=== PATIENT | male | born 1945 | race Caucasian/White ===

== ENCOUNTER → 2016-07-14 | Outpatient (CLI) | payer MEDICARE ==
[~2016-07-14] MED LIST: CARAFATE1 G1 PO; DELTASONE20 M1 PO; GLIPIZIDE XL5 M1 PO; GLUCOPHAGE500 MG/TAB PO; PRILOSEC 20MG20 MG PO; SYNTHROID0.075 MG/T PO; TENORMIN 2525 MG/TAB PO; TERAZOSIN HCL PO; ZITHROMAX 250M250 MG PO
== END ==
LOC: LAB 07:57
DX: E11.9 Type 2 diabetes mellitus without complications (principal); I10 Essential (primary) hypertension; E03.4 Atrophy of thyroid (acquired); G47.33 Obstructive sleep apnea (adult) (pediatric)

== ENCOUNTER → 2016-11-04 | Outpatient (CLI) | payer MEDICARE ==
[2015-12-04 01:51] VITALS: BP 145/82
== END ==
LOC: LAB 07:40
DX: E11.9 Type 2 diabetes mellitus without complications (principal); I10 Essential (primary) hypertension; E03.4 Atrophy of thyroid (acquired); G47.33 Obstructive sleep apnea (adult) (pediatric)

== ENCOUNTER → 2016-11-17 | Outpatient (CLI) | payer MEDICARE ==
[2015-12-04 01:51] VITALS: BP 145/82
== END ==
LOC: LAB 09:45
DX: I10 Essential (primary) hypertension (principal)

== ENCOUNTER → 2017-04-10 | Outpatient (CLI) | payer MEDICARE ==
[2015-12-04 01:51] VITALS: BP 145/82
== END ==
LOC: RAD 16:03
DX: R91.8 Other nonspecific abnormal finding of lung field (principal); R06.2 Wheezing

== ENCOUNTER → 2017-04-12 | Outpatient (CLI) | payer MEDICARE ==
[2015-12-04 01:51] VITALS: BP 145/82
== END ==
LOC: RAD 10:21
DX: J18.9 Pneumonia, unspecified organism (principal)

== ENCOUNTER → 2017-05-20 | Outpatient (CLI) | payer MEDICARE ==
[2015-12-04 01:51] VITALS: BP 145/82
[2017-05-20 09:04] LABS: BASO # 0.1 (0.02-0.10); EOS # 0.2 (0.04-0.40); EOS % 1.7 % (0.0-4.0); HEMATOCRIT 37.3 % (42.0-52.0); HEMOGLOBIN 11.9 g/dL (13.5-18.0); LYMPH# 1.9 (1.50-4.00); MEAN CELL VOLUME 90 fl (78-100); MEAN CORPUSCULAR HEMOGLOBIN 29 pg (27-31); MEAN CORPUSCULAR HGB CONC 32 g/dL (33-37); MEAN PLATELET VOLUME 10.7 fl (7.4-10.4); MONO # 0.7 (0.20-0.80); NEU # 6.5 (1.40-6.50); PLATELET COUNT 319 K/mm3 (130-400); RED BLOOD COUNT 4.14 M/mm3 (4.20-5.60); RED CELL DISTRIBUTION WIDTH 13.1 % (11.5-14.5); WHITE BLOOD COUNT 9.4 K/mm3 (4.8-10.8)
[2017-05-20 09:40] LABS: BUN/CREATININE RATIO 19.1 (6.0-26.0); POTASSIUM 5.3 mmol/L (3.6-5.0); TOTAL BILIRUBIN 0.5 mg/dL (0.2-1.3); TOTAL PROTEIN 6.9 g/dL (6.3-8.2)
[2017-05-20 10:12] LABS: PH-URINE 5.5 (5.0 - 8.0); URINE APPEARANCE CLEAR; URINE BILIRUBIN NEGATIVE (NEGATIVE); URINE BLOOD NEGATIVE (NEGATIVE); URINE COLOR YELLOW; URINE GLUCOSE NEGATIVE (NEGATIVE); URINE KETONE NEGATIVE (NEGATIVE); URINE LEUKOCYTE ESTERASE NEGATIVE (NEGATIVE); URINE NITRATE NEGATIVE (NEGATIVE); URINE PROTEIN(semi-quant) TRACE mg/dL (NEGATIVE); URINE UROBILINOGEN NORMAL (NORMAL)
[2017-05-20 10:13] LABS: URINE MUCUS PRESENT (NOT PRESENT)
[2017-05-20 10:24] LABS: ERYTHROCYTE SEDIMENTATION RATE 25 mm/hr (0-20)
[2017-05-20 17:57] LABS: TESTOSTERONE 308 ng/dL (221-716)
== END ==
LOC: LAB 08:00
PROVIDERS: Internal Medicine
DX: E11.9 Type 2 diabetes mellitus without complications (principal); Z12.5 Encounter for screening for malignant neoplasm of prostate; E78.2 Mixed hyperlipidemia; N52.9 Male erectile dysfunction, unspecified; Z12.11 Encounter for screening for malignant neoplasm of colon; I10 Essential (primary) hypertension; R20.2 Paresthesia of skin; E03.4 Atrophy of thyroid (acquired)

== ENCOUNTER 2017-07-17 14:50 | Emergency (ER) | payer MEDICARE ==
[~2017-07-17] VITALS: Ht 177.8 cm; Wt 108.2 kg
[2017-07-17] MEDS ORDERED: ACTOS30 MG PO (14:58)
[2017-07-17 15:18] LABS: EOS # 0.2 (0.04-0.40); EOS % 2.2 % (0.0-4.0); HEMATOCRIT 34.5 % (42.0-52.0); HEMOGLOBIN 11.1 g/dL (13.5-18.0); LYMPH# 1.8 (1.50-4.00); MEAN CELL VOLUME 91 fl (78-100); MEAN CORPUSCULAR HEMOGLOBIN 29 pg (27-31); MEAN CORPUSCULAR HGB CONC 32 g/dL (33-37); MEAN PLATELET VOLUME 10.1 fl (7.4-10.4); MONO # 0.8 (0.20-0.80); NEU # 5.7 (1.40-6.50); PLATELET COUNT 269 K/mm3 (130-400); RED BLOOD COUNT 3.78 M/mm3 (4.20-5.60); RED CELL DISTRIBUTION WIDTH 13.3 % (11.5-14.5); WHITE BLOOD COUNT 8.5 K/mm3 (4.8-10.8)
[2017-07-17 15:39] LABS: BUN/CREATININE RATIO 16.8 (6.0-26.0); CALCIUM 9.5 mg/dL (8.4-10.2); POTASSIUM 4.1 mmol/L (3.6-5.0); TOTAL BILIRUBIN 0.2 mg/dL (0.2-1.3); TOTAL PROTEIN 7.1 g/dL (6.3-8.2)
[2017-07-17 15:50] LABS: CKMB ISOENZYME 2.1 ng/mL (0.6-3.5)
[2017-07-17 15:52] LABS: TROPONIN-I < 0.03 ng/mL (0.00-0.06)
[2017-07-17] MEDS ORDERED: IPRATROPIUM BROM3 M1 IH (16:17)
[2017-07-17] MEDS ORDERED: PREDNISONE20 M1 PO (16:17)
[2017-07-17] MEDS ORDERED: RT SPIRIVA INH18 MCG IH (16:36)
[2017-07-17 16:57] VITALS: BP 149/70
== END 2017-07-17 16:53 | disposition home or self-care (01) ==
LOC: ED 14:50
PROVIDERS: Nurse Practitioner Primary Care
DX: J44.1 Chronic obstructive pulmonary disease with (acute) exacerbation (principal); I11.0 Hypertensive heart disease with heart failure; I50.9 Heart failure, unspecified; E11.9 Type 2 diabetes mellitus without complications; Z88.5 Allergy status to narcotic agent; Z88.0 Allergy status to penicillin; Z79.84 Long term (current) use of oral hypoglycemic drugs

== ENCOUNTER → 2017-09-18 | Outpatient (CLI) | payer MEDICARE ==
[~2017-09-18] MED LIST changes: +ACTOS30 MG PO; +IPRATROPIUM BROM3 M1 IH; +PREDNISONE20 M1 PO; +RT SPIRIVA INH18 MCG IH
== END ==
LOC: LAB 09:19
DX: R06.02 Shortness of breath (principal)

== ENCOUNTER → 2017-12-05 | Outpatient (CLI) | payer MEDICARE ==
[2017-12-06 04:36] LABS: C-REACTIVE PROTEIN XXX
[2017-12-07 01:00] LABS: ANA SCREEN with REFLEX Negative (Negative)
== END ==
LOC: LAB 08:58
PROVIDERS: Internal Medicine Pulmonary Disease
DX: J44.9 Chronic obstructive pulmonary disease, unspecified (principal)

== ENCOUNTER → 2018-03-20 | Outpatient (CLI) | payer MEDICARE ==
[2018-03-20 07:52] LABS: CALCIUM 9.7 mg/dL (8.4-10.2); POTASSIUM 4.8 mmol/L (3.6-5.0); TOTAL BILIRUBIN 0.6 mg/dL (0.2-1.3); TOTAL PROTEIN 6.8 g/dL (6.3-8.2)
== END ==
LOC: LAB 07:06
PROVIDERS: Internal Medicine
DX: E11.9 Type 2 diabetes mellitus without complications (principal); I10 Essential (primary) hypertension; E78.2 Mixed hyperlipidemia

== ENCOUNTER → 2018-04-03 | Outpatient (CLI) | payer MEDICARE ==
[2018-04-03 10:04] LABS: EOS # 0.2 (0.04-0.40); EOS % 2.5 % (0.0-4.0); HEMATOCRIT 34.3 % (42.0-52.0); LYMPH# 1.2 (1.50-4.00); MEAN CELL VOLUME 93 fl (78-100); MEAN CORPUSCULAR HEMOGLOBIN 30 pg (27-31); MEAN CORPUSCULAR HGB CONC 32 g/dL (33-37); MEAN PLATELET VOLUME 10.7 fl (7.4-10.4); MONO # 0.8 (0.20-0.80); NEU # 5.7 (1.40-6.50); PLATELET COUNT 256 K/mm3 (130-400); RED BLOOD COUNT 3.68 M/mm3 (4.20-5.60); RED CELL DISTRIBUTION WIDTH 13.3 % (11.5-14.5); WHITE BLOOD COUNT 7.9 K/mm3 (4.8-10.8)
[2018-04-03 23:52] LABS: FOLLICLE STIMULATING HORMONE 40.7 mIU/mL (1.0-12.0); LUTENIZING HORMONE 18.9 mIU/mL (0.6-12.1); PROLACTIN 13.6 ng/mL (3.5-19.4); TESTOSTERONE 264 ng/dL (221-716)
== END ==
LOC: LAB 09:08
PROVIDERS: Internal Medicine
DX: J84.89 Other specified interstitial pulmonary diseases (principal); E11.9 Type 2 diabetes mellitus without complications; I10 Essential (primary) hypertension; E29.1 Testicular hypofunction

== ENCOUNTER 2018-05-07 02:59 | Emergency (ER) | payer MEDICARE ==
[~2018-05-07] VITALS: Ht 177.8 cm; Wt 106.8 kg
[~2018-05-07 02:59] MED LIST changes: -GLIPIZIDE XL5 M1 PO; +GLUCOTROL XL10 M1 PO
[2018-05-07] MEDS ORDERED: IPRATROPIUM BROM3 M1 IH (03:14)
[2018-05-07] MEDS ORDERED: DULERA1 ARO IH (03:15)
[2018-05-07] MEDS ORDERED: COZAAR 50MG50 MG/TAB PO (03:16)
[2018-05-07] MEDS ORDERED: ATORVASTATIN CA40 MG PO (03:17)
[2018-05-07] MEDS ORDERED: PRILOSEC OTC20 MG PO (03:17)
[2018-05-07 03:46] LABS: EOS # 0.2 (0.04-0.40); EOS % 1.8 % (0.0-4.0); HEMATOCRIT 32.5 % (42.0-52.0); LYMPH# 1.4 (1.50-4.00); MEAN CELL VOLUME 88 fl (78-100); MEAN CORPUSCULAR HEMOGLOBIN 30 pg (27-31); MEAN CORPUSCULAR HGB CONC 34 g/dL (33-37); MEAN PLATELET VOLUME 9.7 fl (7.4-10.4); MONO # 1.1 (0.20-0.80); NEU # 7.5 (1.40-6.50); PLATELET COUNT 281 K/mm3 (130-400); RED BLOOD COUNT 3.68 M/mm3 (4.20-5.60); WHITE BLOOD COUNT 10.3 K/mm3 (4.8-10.8)
[2018-05-07] MEDS ORDERED: PREDNISONE20 M1 PO (04:29)
[2018-05-07] MEDS ORDERED: NORCO 325 MG-51 TA1 PO (04:29)
[2018-05-07 04:40] VITALS: BP 136/72
== END 2018-05-07 04:40 | disposition home or self-care (01) ==
LOC: ED 02:59
PROVIDERS: Family Medicine
DX: M25.531 Pain in right wrist (principal); J44.9 Chronic obstructive pulmonary disease, unspecified; E11.9 Type 2 diabetes mellitus without complications; I10 Essential (primary) hypertension; E78.5 Hyperlipidemia, unspecified; Z79.899 Other long term (current) drug therapy; Z79.84 Long term (current) use of oral hypoglycemic drugs
CPT/HCPCS: J1885

== ENCOUNTER → 2018-06-12 | Outpatient (CLI) | payer MEDICARE ==
[~2018-06-12] MED LIST changes: +ATORVASTATIN CA40 MG PO; +COZAAR 50MG50 MG/TAB PO; +DULERA1 ARO IH; +NORCO 325 MG-51 TA1 PO; +PRILOSEC OTC20 MG PO
[2018-06-12 10:49] LABS: BASO # 0.1 (0.02-0.10); EOS # 0.2 (0.04-0.40); EOS % 2.3 % (0.0-4.0); HEMATOCRIT 33.6 % (42.0-52.0); HEMOGLOBIN 10.9 g/dL (13.5-18.0); LYMPH# 1.3 (1.50-4.00); MEAN CELL VOLUME 89 fl (78-100); MEAN CORPUSCULAR HEMOGLOBIN 29 pg (27-31); MEAN CORPUSCULAR HGB CONC 32 g/dL (33-37); MONO # 0.7 (0.20-0.80); NEU # 5.2 (1.40-6.50); PLATELET COUNT 314 K/mm3 (130-400); RED BLOOD COUNT 3.79 M/mm3 (4.20-5.60); RED CELL DISTRIBUTION WIDTH 12.2 % (11.5-14.5); WHITE BLOOD COUNT 7.4 K/mm3 (4.8-10.8)
[2018-06-12 11:01] LABS: ALBUMIN 4.3 g/dL (3.5-5.0); CALCIUM 8.3 mg/dL (8.4-10.2); POTASSIUM 4.7 mmol/L (3.6-5.0); TOTAL BILIRUBIN 0.9 mg/dL (0.2-1.3); TOTAL PROTEIN 7.2 g/dL (6.3-8.2)
[2018-06-12 11:13] LABS: PH-URINE 7.5 (5.0 - 8.0); URINE APPEARANCE CLEAR; URINE BILIRUBIN NEGATIVE (NEGATIVE); URINE BLOOD NEGATIVE (NEGATIVE); URINE COLOR YELLOW; URINE GLUCOSE NEGATIVE (NEGATIVE); URINE KETONE NEGATIVE (NEGATIVE); URINE LEUKOCYTE ESTERASE NEGATIVE (NEGATIVE); URINE NITRATE NEGATIVE (NEGATIVE); URINE PROTEIN(semi-quant) 1+ mg/dL (NEGATIVE); URINE UROBILINOGEN NORMAL (NORMAL)
== END ==
LOC: LAB 10:22
PROVIDERS: Internal Medicine
DX: R10.84 Generalized abdominal pain (principal); D64.9 Anemia, unspecified; I10 Essential (primary) hypertension; E11.9 Type 2 diabetes mellitus without complications; J84.112 Idiopathic pulmonary fibrosis
CPT/HCPCS: Q9967

== ENCOUNTER → 2018-07-31 | Day surgery (SDC) | payer MEDICARE | LOC: MSO 09:16 | DX: Z12.11 Encounter for screening for malignant neoplasm of colon (principal); D12.8 Benign neoplasm of rectum; K21.0 Gastro-esophageal reflux disease with esophagitis; K57.30 Diverticulosis of large intestine without perforation or abscess without bleeding; J44.9 Chronic obstructive pulmonary disease, unspecified; I10 Essential (primary) hypertension; G47.33 Obstructive sleep apnea (adult) (pediatric); E11.9 Type 2 diabetes mellitus without complications; E03.9 Hypothyroidism, unspecified; Z79.84 Long term (current) use of oral hypoglycemic drugs; Z88.0 Allergy status to penicillin; Z88.5 Allergy status to narcotic agent; Z88.8 Allergy status to other drugs, medicaments and biological substances; Z87.891 Personal history of nicotine dependence | CPT/HCPCS: 00813; J2704; J7030 ==

== ENCOUNTER → 2018-09-13 | Outpatient (CLI) | payer MEDICARE ==
[2018-09-13 09:40] LABS: ALBUMIN 4.1 g/dL (3.5-5.0); CALCIUM 9.4 mg/dL (8.4-10.2); POTASSIUM 4.3 mmol/L (3.6-5.0); TOTAL BILIRUBIN 0.5 mg/dL (0.2-1.3); TOTAL PROTEIN 6.7 g/dL (6.3-8.2)
== END ==
LOC: LAB 09:09
PROVIDERS: Internal Medicine
DX: J84.89 Other specified interstitial pulmonary diseases (principal); E78.2 Mixed hyperlipidemia; E11.9 Type 2 diabetes mellitus without complications; I10 Essential (primary) hypertension

== ENCOUNTER 2019-07-25 08:30 | Outpatient (RCR) | payer MEDICARE | END 2019-09-29 | disposition still patient (30) | LOC: PT | DX: M48.02 Spinal stenosis, cervical region (principal) ==

== ENCOUNTER → 2019-12-04 | Day surgery (SDC) | payer MEDICARE | LOC: MSO 07:02 | DX: E11.36 Type 2 diabetes mellitus with diabetic cataract (principal); H25.12 Age-related nuclear cataract, left eye; M19.90 Unspecified osteoarthritis, unspecified site; J44.9 Chronic obstructive pulmonary disease, unspecified; E03.9 Hypothyroidism, unspecified; I10 Essential (primary) hypertension; G47.33 Obstructive sleep apnea (adult) (pediatric); K21.9 Gastro-esophageal reflux disease without esophagitis; Z88.5 Allergy status to narcotic agent; Z88.0 Allergy status to penicillin; Z88.8 Allergy status to other drugs, medicaments and biological substances; Z79.82 Long term (current) use of aspirin; Z79.4 Long term (current) use of insulin; Z20.828 Contact with and (suspected) exposure to other viral communicable diseases | CPT/HCPCS: 00142; J0171; J2250; V2632 ==

== ENCOUNTER → 2020-01-08 | Day surgery (SDC) | payer MEDICARE | LOC: MSO 07:00 | DX: E11.36 Type 2 diabetes mellitus with diabetic cataract (principal); H25.11 Age-related nuclear cataract, right eye; J44.9 Chronic obstructive pulmonary disease, unspecified; E03.9 Hypothyroidism, unspecified; M19.90 Unspecified osteoarthritis, unspecified site; Z79.82 Long term (current) use of aspirin; Z79.84 Long term (current) use of oral hypoglycemic drugs; Z88.5 Allergy status to narcotic agent; Z88.0 Allergy status to penicillin; G47.33 Obstructive sleep apnea (adult) (pediatric) | CPT/HCPCS: 00142; J0171; J2250; V2632 ==

== ENCOUNTER 2021-01-07 09:26 | Emergency (ER) | payer MEDICARE ==
[~2021-01-07] VITALS: Wt 99.2 kg
[2021-01-07] MEDS ORDERED: INSULIN 70/3100 U/ML SQ (09:39)
[2021-01-07] MEDS ORDERED: ASPIRIN E.C. 8181 MG (09:39)
[2021-01-07] MEDS ORDERED: MELOXICAM15 MG PO (09:40)
[2021-01-07] MEDS ORDERED: TRELEGY ELLIPT1 EACH IH (09:41)
[2021-01-07 10:05] LABS: BASO # 0.06 (0.02-0.10); EOS # 0.02 (0.04-0.40); EOS % 0.1 % (0.0-4.0); HEMATOCRIT 37.5 % (42.0-52.0); HEMOGLOBIN 12.5 g/dL (13.5-18.0); LYMPH# 0.79 (1.50-4.00); MEAN CELL VOLUME 88 fl (78-100); MEAN CORPUSCULAR HEMOGLOBIN 29 pg (27-31); MEAN CORPUSCULAR HGB CONC 33 g/dL (33-37); MEAN PLATELET VOLUME 10.8 fl (7.4-10.4); MONO # 0.75 (0.20-0.80); NEU # 16.42 (1.40-6.50); PLATELET COUNT 295 K/mm3 (130-400); RED BLOOD COUNT 4.25 M/mm3 (4.20-5.60); WHITE BLOOD COUNT 18.1 K/mm3 (4.8-10.8)
[2021-01-07 10:21] LABS: ALBUMIN 4.3 g/dL (3.4-4.8)
[2021-01-07 10:22] LABS: SODIUM 130 mmol/L (136-145)
[2021-01-07 10:23] LABS: CALCIUM 10.8 mg/dL (8.3-10.5)
[2021-01-07 10:24] LABS: GLUCOSE 205 mg/dL (75-110); TOTAL PROTEIN 7.6 g/dL (6.2-8.1)
[2021-01-07 10:25] LABS: CARBON DIOXIDE 23 mmol/L (23-31)
[2021-01-07 10:26] LABS: TOTAL BILIRUBIN 0.9 mg/dL (0.2-1.2)
[2021-01-07 10:29] LABS: AST-SGOT 22 U/L (5-34)
[2021-01-07 10:30] LABS: ALT/SGPT 45 U/L (0-55)
[2021-01-07 10:38] LABS: TROPONIN-I < 0.03 ng/mL (<0.030)
[2021-01-07 11:48] LABS: URINE APPEARANCE CLEAR; URINE BILIRUBIN NEGATIVE (NEGATIVE); URINE BLOOD NEGATIVE (NEGATIVE); URINE COLOR YELLOW; URINE KETONE NEGATIVE (NEGATIVE); URINE LEUKOCYTE ESTERASE NEGATIVE (NEGATIVE); URINE NITRATE NEGATIVE (NEGATIVE); URINE PROTEIN(semi-quant) 2+ mg/dL (NEGATIVE); URINE UROBILINOGEN NORMAL (NORMAL)
[2021-01-07 14:58] VITALS: BP 143/93
== END 2021-01-07 14:10 | disposition short-term general hospital (02) ==
LOC: ED 09:26
PROVIDERS: Nurse Practitioner
DX: R42 Dizziness and giddiness (principal); R51.9 Headache, unspecified; D72.829 Elevated white blood cell count, unspecified; M54.2 Cervicalgia; R41.0 Disorientation, unspecified; Z20.822 Contact with and (suspected) exposure to COVID-19; Z88.6 Allergy status to analgesic agent
CPT/HCPCS: J2405; J7030

== ENCOUNTER 2021-12-01 17:28 | Emergency (ER) | payer MEDICARE ==
[~2021-12-01] VITALS: Ht 172.7 cm; Wt 99.2 kg
[~2021-12-01 17:28] MED LIST changes: +ASPIRIN E.C. 8181 MG; +INSULIN 70/3100 U/ML SQ; +MELOXICAM15 MG PO; +TRELEGY ELLIPT1 EACH IH
[2021-12-01 19:53] VITALS: BP 157/74
== END 2021-12-01 20:12 | disposition home or self-care (01) ==
LOC: ED 17:28
DX: T22.112A Burn of first degree of left forearm, initial encounter (principal); T31.0 Burns involving less than 10% of body surface; Z23 Encounter for immunization; Z88.6 Allergy status to analgesic agent; X12.XXXA Contact with other hot fluids, initial encounter
CPT/HCPCS: 90715

== ENCOUNTER 2023-03-07 08:38 | Emergency (ER) | payer MEDICARE ==
[~2023-03-07] VITALS: Ht 172.7 cm; Wt 106.4 kg
[2023-03-07] MEDS ORDERED: FLOMAX0.4 MG PO (09:06)
[2023-03-07] MEDS ORDERED: CORTISPORIN-TC10 M1 OT (09:10)
[2023-03-07] MEDS ORDERED: VIAGRA50 M1 PO (09:11)
[2023-03-07 09:29] LABS: BASO # 0.04 K/mm3 (0.02-0.10); EOS # 0.21 K/mm3 (0.04-0.40); EOS % 2.7 % (0.0-4.0); HEMATOCRIT 31.1 % (42.0-52.0); HEMOGLOBIN 10.1 g/dL (13.5-18.0); LYMPH# 0.94 K/mm3 (1.50-4.00); MEAN CELL VOLUME 90 fl (78-100); MEAN CORPUSCULAR HEMOGLOBIN 29 pg (27-31); MEAN CORPUSCULAR HGB CONC 33 g/dL (33-37); MEAN PLATELET VOLUME 10.4 fl (7.4-10.4); MONO # 0.72 K/mm3 (0.20-0.80); NEU # 5.81 K/mm3 (1.40-6.50); PLATELET COUNT 261 K/mm3 (130-400); RED BLOOD COUNT 3.44 M/mm3 (4.20-5.60); WHITE BLOOD COUNT 7.8 K/mm3 (4.8-10.8)
[2023-03-07 09:35] LABS: ALBUMIN 3.7 g/dL (3.4-4.8)
[2023-03-07 09:36] LABS: CALCIUM 8.8 mg/dL (8.3-10.5)
[2023-03-07 09:38] LABS: TOTAL PROTEIN 6.4 g/dL (6.2-8.1)
[2023-03-07 09:39] LABS: TOTAL BILIRUBIN 0.5 mg/dL (0.2-1.2)
[2023-03-07] MEDS ORDERED: PREDNISONE20 M1 PO (10:41)
[2023-03-07 11:00] VITALS: BP 170/92
== END 2023-03-07 11:05 | disposition home or self-care (01) ==
LOC: ED 08:38
PROVIDERS: Physician Assistant
DX: R60.0 Localized edema (principal)

== ENCOUNTER → 2024-07-30 | Outpatient (CLI) | payer MEDICARE ==
[~2024-07-30] MED LIST changes: +CORTISPORIN-TC10 M1 OT; +FLOMAX0.4 MG PO; +VIAGRA50 M1 PO
== END ==
LOC: RAD 09:01
DX: M19.031 Primary osteoarthritis, right wrist (principal); M11.231 Other chondrocalcinosis, right wrist